=== PATIENT | male | born 1965 | race Caucasian/White ===

== ENCOUNTER 2023-10-13 14:14 | Emergency (ER) | payer BC, SELFPAY ==
[2023-10-13 14:15] VITALS: BP 131/90
--- NOTE | 2023-10-13 15:30 | ED.GENMED ---
History of Present Illness
General
Chief Complaint: Musculo-Skeletal Complaint
Source: patient and family
Exam Limitations: none
Time Seen by Provider: 10/13/23 15:02
Nursing documentation reviewed up to this point in time: agreed with
Travel History
Have you had any contact with someone who has COVID-19?: No
Do you have any symptoms of coronavirus? Fever > 100 degrees, chills, cough, shortness of breath, sore throat, loss of taste or smell, muscle aches, or headache?: No
History of Present Illness
History of Present Illness:
58-year-old male past medical history of MVP presenting to the emergency department today with concerns of left-sided shoulder discomfort after a diving catch while playing baseball earlier today. Immediately felt pain to the proximal humerus
region denies any head injury neck injury or significant discomfort otherwise. Increased discomfort with movement of the shoulder.
Past History
Past History
ED Past Medical History: Other (mitral valve prolapse)
ED Past Surgical History: Orthopedic (left elbow)
Review of Systems
Review of Systems
Allergies reviewed?: Yes
All Other Systems: ROS reviewed and negative except as documented in HPI and ROS
Phy Exam
Physical Exam
Physical Exam:
GENERAL: Alert , in no apparent distress
EYE: pupils equal and reactive
NECK: Supple, no significant adenopathy.
ENT: o/p clr, mmm.
CARDIAC: Regular rate and rhythm .
LUNGS: Clear breath sounds bilaterally, no acute respiratory distress, no wheezes/rales/rhonchi
ABDOMEN: Soft, without focal tenderness, no r/g, no cvat
NEUROLOGICAL: Alert and oriented, no focal neuro deficits
SKIN: Warm and dry, skin intact.
MUSCULOSKELETAL: Tender palpation to the left lateral deltoid region any movement of the shoulder increases discomfort to the proximal humerus
Was to the clavicle or scapula no tenderness to the remainder of the upper extremity ribs or neck. Well perfused.
PSYCH: Normal and appropriate interaction.
Course
Orders/Labs/Results
Orders:
Orders
10/13/23 14:18
CR Shoulder, Trauma - Left Urgent
Comment:
Reason For Exam: fall
Vital Signs
Initial and Last Documented VS:
Initial Vital Signs
Temp Pulse Resp BP Pulse Ox
98.1 F 76 18 131/90 98
10/13/23 14:15 10/13/23 14:15 10/13/23 14:15 10/13/23 14:15 10/13/23 14:15
Last Documented Vital Signs
Temp Pulse Resp BP Pulse Ox
98.1 F 76 18 131/90 98
10/13/23 14:15 10/13/23 14:15 10/13/23 14:15 10/13/23 14:15 10/13/23 14:15
MDM/Problems Addressed
MDM/Problems Addressed:
58-year-old male presenting to the emergency department today with concerns of shoulder discomfort after diving for a baseball at a game just prior to arrival. Patient was found to have a proximal humerus fracture on x-ray. It was signs of
complications neurovascular intact patient was placed in a sling otherwise able to follow-up with orthopedics as an outpatient. Return precautions given.
*Critical Care Note
Total Time (30-74mins, 75-104mins- exclusive of procedures): Not Applicable
ED Attending Note
-
Portions of this chart may have been created with voice recognition software.� Occasional wrong word or��sound alike� substitutions may have occurred due to the inherent limitations of voice recognition software.
Discharge Plan
Departure
Patient Disposition: Home (Routine Discharge)
Date of Disposition: 10/13/23
Time of Disposition: 15:33
Patient with high blood pressure during this ER visit?: No
Condition: Good
Covid-19: Not Applicable
Discharge Problem:
Fracture of proximal end of left humerus
Instructions: Shoulder Fracture (DC)
Prescriptions:
New
oxycodone-acetaminophen [Percocet] 5-325 mg tablet
1 tab PO Q8H PRN (Reason: Pain) Qty: 5 0RF
Referrals:
Deon Orourke MD [Family Provider] -
Antione Guerra MD [Active] - Follow up in 5-7 days
Activity Restrictions/Additional Instructions:
You came to the emergency department today with concerns of shoulder discomfort. You are found to have a proximal humerus fracture. Please have close with orthopedics. Return to the emergency department for any worsening, new or concerning
symptoms.
Interventions
Interventions:
*Risk Screen - Suicide Last Done: 10/13/23 14:59
*General Assessment Last Done: 10/13/23 14:15
*Neglect/Abuse Screening Last Done: 10/13/23 14:59
*ED COVID-19 Vaccine History Last Done: 10/13/23 14:15
ED-Musculoskeletal Assessment Last Done: 10/13/23 14:59
Discharge Date and Time
Print Language: NICARAG[place]
== END 2023-10-13 15:54 | disposition home or self-care (01) ==
LOC: EMR 14:14
PROVIDERS: EMERGENCY PHYSICIAN Emergency Medicine; FAMILY PHYSICIAN Internal Medicine
DX: S42.202A Unspecified fracture of upper end of left humerus, initial encounter for closed fracture (principal); X50.1XXA Overexertion from prolonged static or awkward postures, initial encounter; Y93.64 Activity, baseball
CPT/HCPCS: 99283; 73030